=== PATIENT | male | born 1980 | race African-American/Black ===

== ENCOUNTER → 2017-06-17 | Outpatient (CLI) | payer OTHER ==
--- NOTE | 2017-06-17 13:23 | MRI ---
Indication: Swelling and pain along the 2nd digit. Exam: MRI right hand without contrast. Technique: Routine multiplanar multisequence imaging was performed through the right hand with attent ion to the 2nd digit without contrast. Findings: There is a skin marker overlying the dorsal aspect of the 2nd MCP joint. There is a subtle area of cortical regularity along the base of the proximal phalanx laterally along the lateral aspect of the proximal phalanx which may extend slightly into the joint space . There is some mild bone mar row edema extending into the proximal phalanx. There is a tiny effusion in the MCP joint. The surroun ding tendons and ligaments are intact. No masses are seen. Impression: Findings is suspicious for a tiny nondisplaced cortical fracture along the base of the proximal phala nx of the 2nd digit laterally which may extend slightly into the joint space with mild edema in the a djacent bone marrow . Recommend correlating with plain films . Tiny effusion in the 2nd MCP joint which is probably due to posttraumatic synovitis. Reported By:
== END | disposition home or self-care (01) ==
LOC: RAD 10:54
DX: M79.644 Pain in right finger(s) (principal); M25.441 Effusion, right hand
CPT/HCPCS: 73221